=== PATIENT | female | born 1975 | race Caucasian/White ===

== ENCOUNTER 2016-12-29 06:14 | Day surgery (SDC) | payer BC ==
[~2016-12-29 06:14] MED LIST: Famotidine IV* 10 MG/ML 2 ML (20 mg) IV ONE
[2016-12-29] MEDS ORDERED: Buffered Lidocaine 0.9% SYRIN* 5 ML/SYR SYRINGE ONE (06:23)
[2016-12-29] MEDS ORDERED: ceFAZolin 2 GM PREMIX(*) 2 GM/50 ML BAG IVPB ONE (06:23)
[2016-12-29] MEDS ORDERED: Famotidine IV* 10 MG/ML 2 ML (20 mg) ONE (06:23)
[2016-12-29] MEDS: Buffered Lidocaine 0.9% SYRIN* 5 ML/SYR SYRINGE INTRADERM ONE ×2 (06:50)
[2016-12-29 07:15] LABS: Manual Entry Verification HAN0055; UR Preg Internal Control QC Line Present
[2016-12-29] MEDS ORDERED: fentaNYL* 50 MCG/ML 2 ML VIAL (100 MCG VIAL) ONE (07:38)
[2016-12-29] MEDS ORDERED: Midazolam* 1 MG/ML 5 ML VIAL (5 MG) ONE (07:38)
[2016-12-29] MEDS ORDERED: DiMENhydriNATE IV* 50 MG/ML VIAL ONE (07:39)
[2016-12-29] MEDS ORDERED: Ketorolac INJ* 30 MG/ML 1 ML VIAL ONE (07:39)
[2016-12-29] MEDS ORDERED: Dexamethasone IV* 4 MG/ML 1 ML (4 MG) ONE (07:39)
[2016-12-29] MEDS ORDERED: Ondansetron INJ* 2 MG/ML VIAL ONE (07:39)
[2016-12-29] MEDS ORDERED: Lidocaine 2% PF * 5 ML VIAL ONE (07:39)
[2016-12-29] MEDS ORDERED: Propofol* 10 MG/ML 20 ML BTL IV PUSH ONE (07:39)
[2016-12-29] MEDS ORDERED: Acetaminophen TAB* 325 MG PO PRN (08:25)
[2016-12-29] MEDS ORDERED: oxyCODONE TAB* 5 MG TAB PO PRN (08:25)
[2016-12-29] MEDS ORDERED: DiMENhydriNATE IV* 50 MG/ML VIAL IV PUSH PRN (08:25)
[2016-12-29] MEDS ORDERED: Ibuprofen TAB* 600 MG PO PRN (08:46)
[2016-12-29] MEDS ORDERED: oxyCODONE/Acetamin 5/325 MG* TAB PO PRN (08:47)
[2016-12-29 10:49] VITALS: BP 124/75
--- NOTE | 2016-12-29 11:00 | OP ---
DATE OF OPERATION: 12/29/16 [facility] DATE OF : [birth year] SURGEON: Tan Thakur MD ANESTHESIOLOGIST: Dr. Montanez. ANESTHESIA: General endotracheal anesthesia. PRE-OP DIAGNOSIS: Retained intrauterine device. POST-OP DIAGNOSIS: Retained intrauterine device. OPERATIVE PROCEDURE: Exam under anesthesia, dilation of the cervix, hysteroscopic removal of the Mirena and placement of a new Mirena. ESTIMATED BLOOD LOSS: Minimal, 20 cc. FINDINGS: Small anteverted uterus. The uterus sounds to 8. The intrauterine device was within the confines of the uterus. The strings had been retracted upward. No adnexal masses were palpated. The IUD was removed intact with both strings attached. Those are the findings. COMPLICATIONS: None. COUNTS: Sponge, lap, and needle count were correct x2. CONDITION: The patient was brought to recovery room, awake and in stable condition. DESCRIPTION OF PROCEDURE: The patient was brought to the operating room. Urine test was negative. When general anesthesia was found to be adequate, the patient was prepped and draped in the usual sterile fashion in the dorsal lithotomy position. Exam under anesthesia was performed with the above findings noted. Weighted speculum was placed in the vagina. The cervix was gently and easily dilated with the graduated Healy dilators. The hysteroscope was introduced with the above findings noted. The IUD strings were visualized with the hysteroscope and using the operative graspers, the strings were grasped and the IUD was removed easily with one pull intact. The uterus was sounded to 8. The new Mirena which expires June of 2019 was placed easily, and the uterus and the strings were cut to 2.5 to 3 cm. The tenaculum was removed from the cervix. Hemostasis was achieved with pressure. All instruments were removed from the vagina, and the patient was brought to recovery room awake and in stable condition. [id number]/[facility] #: [id number] MTDD
== END 2016-12-29 10:49 | disposition home or self-care (01) ==
LOC: OR 06:14
PROVIDERS: ATTEND Obstetrics & Gynecology
DX: T83.89XA Other specified complication of genitourinary prosthetic devices, implants and grafts, initial encounter (principal); Y83.1 Surgical operation with implant of artificial internal device as the cause of abnormal reaction of the patient, or of later complication, without mention of misadventure at the time of the procedure; Z87.891 Personal history of nicotine dependence; E03.9 Hypothyroidism, unspecified; G35 Multiple sclerosis
CPT/HCPCS: 81025; J0690; J1100; J1240; J1885; J2250; J2405; J2704; J3010; J7300

== ENCOUNTER 2017-07-05 16:14 | Emergency (ER) | payer BC | END 2017-07-05 16:51 | disposition left against medical advice (07) | LOC: UCEAST 16:14 | DX: Z53.21 Procedure and treatment not carried out due to patient leaving prior to being seen by health care provider (principal) ==

== ENCOUNTER 2017-11-13 06:10 | Day surgery (SDC) | payer BC ==
[~2017-11-13 06:10] MED LIST changes: +Buffered Lidocaine 0.9% SYRIN* 5 ML/SYR SYRINGE INTRADERM ONE; -Famotidine IV* 10 MG/ML 2 ML (20 mg) IV ONE; +Famotidine TAB* 20 MG PO ONE
[2017-11-13] MEDS ORDERED: ceFAZolin 2 GM PREMIX (*) 2 GM/50 ML BAG IVPB ONE (06:11)
[2017-11-13] MEDS ORDERED: Famotidine TAB* 20 MG ONE (06:11)
[2017-11-13] MEDS ORDERED: Bupivacaine 0.5% PF 10 ML VIAL INJ ONE (07:08)
[2017-11-13] MEDS ORDERED: fentaNYL* 50 MCG/ML 2 ML VIAL (100 MCG VIAL) ONE (07:26)
[2017-11-13] MEDS ORDERED: Midazolam* 1 MG/ML 5 ML VIAL (5 MG) ONE (07:27)
[2017-11-13] MEDS ORDERED: Dexamethasone IV* 4 MG/ML 1 ML (4 MG) ONE (08:06)
[2017-11-13] MEDS ORDERED: DiMENhydriNATE IV* 50 MG/ML VIAL ONE (08:06)
[2017-11-13] MEDS ORDERED: Ondansetron INJ* 2 MG/ML VIAL ONE (08:06)
[2017-11-13] MEDS ORDERED: Ketorolac INJ* 30 MG/ML 1 ML VIAL ONE (08:06)
[2017-11-13] MEDS ORDERED: Lidocaine 2% PF * 5 ML VIAL ONE (08:06)
[2017-11-13] MEDS ORDERED: Propofol* 10 MG/ML 20 ML BTL IV PUSH ONE (08:06)
[2017-11-13] MEDS ORDERED: DiMENhydriNATE IV* 50 MG/ML VIAL IV PUSH PRN (08:24)
[2017-11-13] MEDS ORDERED: Naloxone* 0.4 MG/ML 1 ML VIAL IV PRN (08:24)
[2017-11-13] MEDS ORDERED: Acetaminophen TAB* 325 MG PO PRN (08:24)
[2017-11-13] MEDS ORDERED: HYDROmorphone INJ* 2 MG/ML CARPUJECT SYRINGE ONE (08:49)
[2017-11-13] MEDS ORDERED: oxyCODONE TAB* 5 MG TAB ONE ×2 (08:49→10:06)
[2017-11-13] MEDS: HYDROmorphone INJ* 1 MG/ML CARPUJECT SYRINGE IV PRN ×2 (08:52→09:12)
[2017-11-13] MEDS ORDERED: Acetaminophen TAB* 325 MG ONE (08:56)
[2017-11-13] MEDS: oxyCODONE TAB* 5 MG TAB PO PRN ×2 (08:57→10:10)
[2017-11-13 11:11] VITALS: BP 111/73
--- NOTE | 2017-11-13 21:04 | OP ---
DATE OF OPERATION: 11/13/17 - [facility] DATE OF : [birth year] SURGEON: Pablo Ricci MD CROSSING SUPERVISOR: GIGI Avila PRE-OP DIAGNOSIS: Right ankle instability and Achilles tightness. POST-OP DIAGNOSIS: Right ankle instability and Achilles tightness. OPERATIVE PROCEDURE: Right ankle ligament repair and Priscila. DESCRIPTION OF PROCEDURE: The patient was taken to the operating room where lateral positioning was used. We opened up over the distal fibula to allow visualization of the anterior capsule. I reflected the anterior capsule away from the anterior distal fibula. The capsule itself was felt to be reasonably thick and robust to allow a modified anatomic repair. I roughened the anterior edge of the fibula with a rongeur and then passed 0.062 C-wire drill holes from back to front, passing #1 Vicryl sutures. A Corbin-Bandar suture was used through the anterior capsule; one more distal, one more proximally, tied over the distal fibula. We then brought the redundant periosteum back over the capsule, repaired with 2-0 Vicryl. Subcutaneous tissue closed with 2-0 Vicryl and Monocryl for the skin. Proximally, a 3 cm incision was made up in the area of the Achilles tendon overlying the soleus. Care was taken to protect the sural nerve, and I divided the tendinous portion of the Achilles at this level. This did allow a couple of centimeters of lengthening overall. This wound was then closed with Vicryl and Monocryl as well and a compression dressing plaster splint applied. [id number]/[facility] #: [id number] MTDD
== END 2017-11-13 11:47 | disposition home or self-care (01) ==
LOC: OR 06:10
PROVIDERS: ATTEND Orthopaedic Surgery
DX: M25.371 Other instability, right ankle (principal); G35 Multiple sclerosis; Z87.891 Personal history of nicotine dependence; E03.9 Hypothyroidism, unspecified; E55.9 Vitamin D deficiency, unspecified; F41.8 Other specified anxiety disorders; Z72.0 Tobacco use
CPT/HCPCS: 81025; A9270-GY; J0690; J1100; J1170; J1240; J1885; J2250; J2405; J2704; J3010

== ENCOUNTER 2019-07-22 07:48 | Emergency (ER) | payer BC ==
--- OUTSIDE RECORDS SUMMARY | 2019-07-22 07:54 | XMS REPORT | Continuity of Care Document ---
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 Social History Type Date Description Comments Sex Unknown Tobacco Use Start: Unknown End: Patient is a former smoker Smoking Status Reviewed: 07/12/19 Patient is a former smoker Allergies, Adverse Reactions, Alerts Active Allergies Reaction Severity Comments Date Latex No Reaction Indicated 03/22/2019 Medications Active Medications SIG Qnty Indications Ordering Date Provider Biotin Extra Strength Eddi Jamison MD 07/12/2019 10mg Capsules Baclofen tab by mouth twice LALO Avery 04/04/2019 10mg Tablets a day as needed Fluticasone 2 sprays in each 32gm H69.93 LALO Avery 04/04/2019 Propionate nostril for 5 days 50mcg/Act Suspension Mirena (52 MG) Insert Now 1units Unknown 10/24/2016 Intrauterine 20mcg/24HR IUD Wellbutrin SR 1 twice daily Oral 60tabs Unknown 04/21/2016 150mg Tablets ER 12HR Synthroid 1 daily Oral 30tabs Unknown 08/24/2015 100mcg Tablets Epipen 2-Gage 1 prn Injection 1units Unknown 03/17/2015 0.3mg/0.3ML Solution Auto-Inject Spironolactone 1 daily Oral; 2-3 30tabs Unknown 07/15/2014 50mg day Tablets Ocrevus Unknown 300mg/10ML Solution Addyi Unknown 100mg Tablets Vitamin D High Unknown Potency 25mcg (1000 Ut) Capsules Vitamin B-12 Unknown Natural 500mcg Tablets Biotin Maximum Unknown [id number] Tablets Dispers Immunizations CPT Code Status Date Vaccine Lot # [id number] Given 04/16/2019 Flu < 65 years 94313 Given 04/21/2016 Flu < 65 years 28318 Given 02/17/2014 Tdap - Boostrix/Adacel Vital Signs Date Vital Result Comment 07/12/2019 1:18pm BP Systolic 140 mmHg BP Diastolic 90 mmHg Height 60 inches 5'0" Weight 166.00 lb Heart Rate 86 /min Body Temperature 97.5 F O2 % BldC Oximetry 95 % BMI (Body Mass Index) 32.4 kg/m2 04/04/2019 7:37am BP Systolic 124 mmHg BP Diastolic 70 mmHg Weight 165.00 lb Heart Rate 92 /min Body Temperature 97.9 F O2 % BldC Oximetry 98 % Results Description No Information Available Procedures Description No Information Available Medical Devices Description No Information Available Encounters Type Date Location Provider Dx Diagnosis Office Visit 07/12/2019 1:15p [facility] Eddi Jamison MD R00.2 Palpitations R03.0 Elevated blood-pressure reading, w/o diagnosis of htn G35 Multiple sclerosis F43.23 Adjustment disorder with mixed anxiety and depressed mood Office Visit 04/04/2019 7:30a [facility] JAMISON CastroP F17.200 Nicotine dependence, unspecified, uncomplicated J02.9 Acute pharyngitis, unspecified H69.93 Unspecified Eustachian tube disorder, bilateral Z71.6 Tobacco abuse counseling Assessments Date Code Description Provider 07/12/2019 R00.2 Palpitations Eddi Jamison MD 07/12/2019 R03.0 Elevated blood-pressure reading, without diagnosis Eddi Jamison MD of hypertension 07/12/2019 G35 Multiple sclerosis Eddi Jamison MD 07/12/2019 F43.23 Adjustment disorder with mixed anxiety and Eddi Jamison MD depressed mood 04/04/2019 F17.200 Nicotine dependence, unspecified, uncomplicated LALO Avery 04/04/2019 J02.9 Acute pharyngitis, unspecified LALO Avery 04/04/2019 H69.93 Unspecified Eustachian tube disorder, bilateral LALO Avery 04/04/2019 Z71.6 Tobacco abuse counseling LALO Avery Plan of Treatment 07/12/2019 - Eddi Jamison, MDR00.2 QygbfmdodwtmM68.0 Elevated blood-pressure reading, without diagnosis of ngiszvsrihemO50 Multiple wgnpcrhmhD90.23 Adjustment disorder with mixed anxiety and depressed moodAllNew Medication: Biotin Extra Strength 10 mg - Functional Status Description No Information Available Mental Status Description No Information Available Referrals Description No Information Available
[2019-07-22 07:56] VITALS: BP 150/90
[2019-07-22] MEDS ORDERED: Tetan/Diph/Pertus SYR(Tdap)* 0.5 ML SYR(BOOSTRIX) use SYR contains LATEX IM ONE (07:58)
--- NOTE | 2019-07-22 08:01 | UC ---
Laceration HPI - HPI Summary HPI Summary: 43 yo female presents with finger laceration. She tells me that yesterday morning she was slicing a bagel and the knife slipped and she sustained a laceration to her left thumb. She cleaned and bandaged the area. This morning she took the bandage off and thinks the lacerated part through the nail is deep and came for eval. Last tetanus was 6 years ago. - History Of Current Complaint Chief Complaint: UCLaceration Stated Complaint: FINGER INJURY Time Seen by Provider: 07/22/19 08:00 Hx Obtained From: Patient Hx Last Menstrual Period: mirena Laceration Location: Finger Mechanism Of Injury: Sharp Trauma Onset/Duration: Sudden Onset Severity: Mild Pain Intensity: 2 Pain Scale Used: 0-10 Numeric - Allergies/Home Medications Allergies/Adverse Reactions: Allergies Allergy/AdvReac Type Severity Reaction Status Date / Time latex Allergy Rash And Verified 07/22/19 07:57 Itching PMH/Surg Hx/FS Hx/Imm Hx Endocrine History: Hypothyroidism Psychological History: Depression - Surgical History Surgical History: Yes Surgery Procedure, Year, and Place: [place]ectomy 1985- [place]. nasal sept[place] 1987 [place]. [place] [facility] [place]. wisdom teeth extraction in dental [place]. [place] [facility] [place] 11/01 ( HARDWARE REMOVED) - Family History Known Family History: Positive: Non-Contributory - Social History Occupation: Employed Full-time Lives: With Family Alcohol Use: Occasionally Alcohol Amount: 3 PER WEEK Substance Use Type: Marijuana Substance Use Comment - Amount & Last Used: reports occas Smoking Status (MU): Former Smoker Type: Cigarettes Amount Used/How Often: reports 3-4 cigs per day for 20 years Have You Smoked in the Last Year: Yes When Did the Patient Quit Smoking/Using Tobacco: 2017 Household Exposure Type: Cigarettes Review of Systems All Other Systems Reviewed And Are Negative: No Constitutional: Positive: Negative Skin: Positive: Other - Finger laceration Respiratory: Positive: Negative Cardiovascular: Positive: Negative Neurovascular: Positive: Negative Musculoskeletal: Positive: Negative Neurological: Positive: Negative Psychological: Positive: Negative Physical Exam - Summary Physical Exam Summary: GENERAL: NAD. WDWN. No pain distress. SKIN: LEFT THUMB: Distal tuft with vertical 1.0cm laceration extending 3mm into the nail. Well approximated. Dried blood/scab present. No drainage. Mild tenderness. CHEST: No accessory muscle use. Breathing comfortably and in no distress. CV: Pulses intact. Cap refill <2seconds NEURO: Alert. PSYCH: Age appropriate behavior. Triage Information Reviewed: Yes Vital Signs: Initial Vital Signs Temp 98 F 07/22/19 07:52 Pulse 86 07/22/19 07:52 Resp 16 07/22/19 07:52 BP 150/90 07/22/19 07:52 Pulse Ox 100 07/22/19 07:52 Vital Signs Reviewed: Yes Laceration Course/Dx - Course/Dx Course Of Treatment: tdap updated today. Laceration is well approximated and >16hours old - no indication for closure today. Recommend daily dressing changes and keeping the area clean. - Diagnosis Provider Diagnosis: Laceration of left thumb Discharge ED - Sign-Out/Discharge Documenting (check all that apply): Patient Departure All imaging exams completed and their final reports reviewed: No Studies - Discharge Plan Condition: Stable Disposition: HOME Patient Education Materials: Finger Laceration (ED) Referrals: Eddi Jamison MD [Primary Care Provider] - Additional Instructions: If you develop a fever, shortness of breath, chest pain, new or worsening symptoms - please call your PCP or go to the ED immediately. Your blood pressure was high at todays visit. Please see your primary provider within 4 weeks for recheck and re-evaluation. Change the dressing daily and keep the area clean with soap and water. Your tetanus shot was updated today - Billing Disposition and Condition Condition: STABLE Disposition: Home - Attestation Statements Provider Attestation: Pt not seen by me. I was available for consult. Chart reviewed. KEL
== END 2019-07-22 08:22 | disposition home or self-care (01) ==
LOC: UCEAST 07:48
DX: S61.012A Laceration without foreign body of left thumb without damage to nail, initial encounter (principal); W26.0XXA Contact with knife, initial encounter; Y92.9 Unspecified place or not applicable; Z87.891 Personal history of nicotine dependence; Z91.040 Latex allergy status
CPT/HCPCS: 90471; 90715; 99211; G0463